=== PATIENT | male | born 1975 | race Caucasian/White ===

== ENCOUNTER 2023-10-12 02:18 | Observation (INO) | payer OTHER, SELFPAY ==
[2023-10-11 22:56] VITALS: BP 175/111
--- NOTE | 2023-10-11 23:56 | ED.GENMED ---
History of Present Illness
<GEOVANNA Sneed - Last Filed: 10/12/23 01:27>
General
Chief Complaint: Abdominal Pain
Source: patient
Exam Limitations: none
Time Seen by Provider: 10/11/23 23:38
Travel History
Have you had any contact with someone who has COVID-19?: No
Do you have any symptoms of coronavirus? Fever > 100 degrees, chills, cough, shortness of breath, sore throat, loss of taste or smell, muscle aches, or headache?: No
History of Present Illness
History of Present Illness:
This is a 48 year old male that comes in with c/o epigastric pain. States that this started on in [place] about 6:30pm. Sates that he just felt off. States that he came home and he felt worse. States that he tried Mylanta and TUMS and nothing helped
and the pain is getting worse. States that the pain is constant. State that he has had this in the past but it would go away. States that he was sweaty, nausea, vomiting and lightheaded. Denies any fever, chills, chest pain, SOB, diarrhea, headache,
urinary burning.
Past History
<GEOVANNA Sneed - Last Filed: 10/12/23 01:27>
Past History
ED Past Medical History: None; Negative Asthma, HTN, Hypercholesterolemia or NIDDM
ED Past Surgical History: None
Social History
Tobacco: Non-smoker
Alcohol: Occasional
Personal:
Living: with family
Review of Systems
<GEOVANNA Sneed - Last Filed: 10/12/23 01:27>
Review of Systems
All Other Systems: ROS reviewed and negative except as documented in HPI and ROS
Constitutional: Reports other (Sweaty); Denies fever or chills
EENT: Reports no symptoms
Respiratory: Reports no symptoms; Denies cough or trouble breathing
Cardiac: Reports no symptoms; Denies chest pain
ABD/GI: Reports abdominal pain, nausea and vomiting; Denies diarrhea
: Reports no symptoms; Denies dysuria, frequency or urgency
Musculoskeletal: Reports no symptoms
Skin: Reports no symptoms
Neurological: Reports other (Lightheaded); Denies dizzy or headache
Psychiatric: Reports no symptoms
Phy Exam
<GEOVANNA Sneed - Last Filed: 10/12/23 01:27>
General Physical Exam
General Presentation: mild distress
General age: appears stated age
General Skin: warm and dry
General Habitus: normal
General Mental: alert
General Hydration: appears well hydrated
ENT Exam
ENT Exam: TM's normal, pharynx normal and neck supple
Eye Exam
Eye Exam: EOMI
Cardiovascular Exam
Cardiovascular Exam: regular rate/rhythm, no edema, no murmur and normal peripheral pulses
Pulmonary Exam
Pulmonary Exam: lungs clear, no respiratory distress, no rales, chest non tender, no crackles, no rhonchi, no wheezing and no cough
Gastrointestinal Exam
Gastrointestinal Exam: soft, no organomegaly, no pulsatile mass, non distended, tender (Epigastric tenderness with palpation) and other (Hypoactive bowel sounds)
Musculoskeletal Exam
Musculoskeletal Exam: full ROM and no edema
Skin Exam
Skin Exam: normal color, warm/dry, no rash and no petechia
Psychiatric Exam
Psychiatric Exam: normal mood/affect
Course
<GEOVANNA Sneed - Last Filed: 10/12/23 01:27>
Orders/Labs/Results
Orders:
Orders
10/11/23 22:57
ECG [Electrocardiogram (*1)] Urgent
Reason for Study: Abdominal Pain
10/11/23 22:58
EKG- Treatment ONCE
10/11/23 23:49
Complete Blood Count/With Diff Urgent
Comprehensive Metabolic Panel Urgent
Lipase Urgent
HYDROmorphone [Dilaudid] 0.5 mg IV NOW STA
Ondansetron Injectable [Zofran] 4 mg IV NOW STA
Pantoprazole [Protonix IV] 40 mg IV NOW STA
US Abdomen Complete/Upper Urgent
Comment:
Reason For Exam: Upper abd pain
10/11/23 23:50
Troponin I Urgent
10/12/23 01:05
Piperacillin/Tazo 3.375 Gram [Zosyn] 3.375 gram in 50 ml IV NOW
10/12/23 01:21
HYDROmorphone [Dilaudid] 1 mg .ROUTE .STK-MED ONE
10/12/23 01:22
HYDROmorphone [Dilaudid] 1 mg IV NOW STA
Abnormal Lab Results
10/12/23
00:06
Abs Immat Gran (auto) 0.1 H 10^3/uL
(0-0.05)
Immature Gran % 0.6 H %
(0-0.5)
Glucose 133 H mg/dl
(70-99)
10/12/23 00:06
10/12/23 00:06
Glucose nonfasting. Otherwise normal labs, Lipase normal at 180, Troponin <0.012
Vital Signs
Initial and Last Documented VS:
Initial Vital Signs
Temp Pulse Resp BP Pulse Ox
98.3 F 70 20 175/111 99
10/11/23 22:56 10/11/23 22:56 10/11/23 22:56 10/11/23 22:56 10/11/23 22:56
Last Documented Vital Signs
Temp Pulse Resp BP Pulse Ox
98.3 F 78 20 143/103 98
10/11/23 22:56 10/12/23 01:27 10/12/23 01:27 10/12/23 01:17 10/12/23 01:18
<Frank Retana, DO - Last Filed: 10/12/23 01:28>
Orders/Labs/Results
Orders:
Orders
10/11/23 22:57
ECG [Electrocardiogram (*1)] Urgent
Reason for Study: Abdominal Pain
10/11/23 22:58
EKG- Treatment ONCE
10/11/23 23:49
Complete Blood Count/With Diff Urgent
Comprehensive Metabolic Panel Urgent
Lipase Urgent
HYDROmorphone [Dilaudid] 0.5 mg IV NOW STA
Ondansetron Injectable [Zofran] 4 mg IV NOW STA
Pantoprazole [Protonix IV] 40 mg IV NOW STA
US Abdomen Complete/Upper Urgent
Comment:
Reason For Exam: Upper abd pain
10/11/23 23:50
Troponin I Urgent
10/12/23 01:05
Piperacillin/Tazo 3.375 Gram [Zosyn] 3.375 gram in 50 ml IV NOW
10/12/23 01:21
HYDROmorphone [Dilaudid] 1 mg .ROUTE .STK-MED ONE
10/12/23 01:22
HYDROmorphone [Dilaudid] 1 mg IV NOW STA
Abnormal Lab Results
10/12/23
00:06
Abs Immat Gran (auto) 0.1 H 10^3/uL
(0-0.05)
Immature Gran % 0.6 H %
(0-0.5)
Glucose 133 H mg/dl
(70-99)
10/12/23 00:06
10/12/23 00:06
Vital Signs
Initial and Last Documented VS:
Initial Vital Signs
Temp Pulse Resp BP Pulse Ox
98.3 F 70 20 175/111 99
10/11/23 22:56 10/11/23 22:56 10/11/23 22:56 10/11/23 22:56 10/11/23 22:56
Last Documented Vital Signs
Temp Pulse Resp BP Pulse Ox
98.3 F 78 20 143/103 98
10/11/23 22:56 10/12/23 01:27 10/12/23 01:27 10/12/23 01:17 10/12/23 01:18
<GEOVANNA Sneed - Last Filed: 10/12/23 01:27>
MDM/Problems Addressed
Differential Diagnosis Includes:
Gastritis, Pancreatitis, Gallbladder disease
MDM/Problems Addressed:
This is a 48 year old male that comes in with c/o epigastric pain. State that he has had this before but it would go away. Today the pain has been constant and it not going away. State that he had nauesa and vomiting and was lightheaded.
Will get labs and US. Will medicate for pain.
Back into see patient. Explained that he has a gallstones stuck in the neck of the gallbladder. Gallbladder is distended. Will admit patient and notify surgery.
Dr. Dorman notified and he will take patient on his Service. Will have the house AUTOMATIC TYPEWRITER INSPECTOR admit for him.
Chronic conditions affecting care:
NA
Acute Exacerbation and/or Progression of Chronic Illness:
NA
<GEOVANNA Sneed - Last Filed: 10/12/23 01:27>
*Radiology
Radiology exam reviewed: radiology read reviewed (US- [place]- 1.3cm gallstone lodged in the neck of mild to moderately distended gallbladder, measuring approximately 9cm in length. No gallbladder wall thickening or pericholecystic fluid.
Negative Cardoso's sign. No biliary ductal dilation. Findings may reflect biliary colic however consider ) and other (US cont- early acute cholecystitis in the appropriate clinical setting. Hyperechoic fatty liver. Kidneys without hydronephrosis. )
*Pulse Oximetry
Patient hypoxic: no
*EKG
Interpreted by ED Provider?: Yes
Heart Rate: 64
Rate: normal
Rhythm: sinus
Cobb: normal axis
Interval: normal interval
QRS Pattern: normal QRS
Ischemia: no ischemia
*Director Of Regional Sales Interpretation
Rate: Director Of Regional Sales- N/A
*Critical Care Note
Total Time (30-74mins, 75-104mins- exclusive of procedures): Not Applicable
ED Attending Note
<GEOVNANA Sneed - Last Filed: 10/12/23 01:27>
-
Portions of this chart may have been created with voice recognition software.� Occasional wrong word or��sound alike� substitutions may have occurred due to the inherent limitations of voice recognition software.
<Frank Retana DO - Last Filed: 10/12/23 01:28>
ED Attending Note
I performed the substantive portion of visit, reviewed & personally made and approve the management plan that is documented in note by myself or QUYEN.: Yes
ED Attending Note:
I have reviewed and agree with history and treatment plan by Yenni Schwarz. Agree patient's persistent right upper quadrant abdominal pain and distended gallbladder early cholecystitis. Zosyn, admit to general surgery.
Discharge Plan
Departure
Patient Disposition: Admit
Date of Disposition: 10/12/23
Time of Disposition: 01:25
Admit to: Med/Surg
Presentation/result/management discussed w/ accepting MD/DO: Dandy Bryant
Patient with high blood pressure during this ER visit?: Yes
Condition: Good
Covid-19: Not Applicable
Discharge Problem:
Acute early Cholecystitis, Abdominal pain
Referrals:
Dara Moreno PA-C [Family Provider] -
Interventions
Interventions:
*Risk Screen - Suicide Last Done: 10/11/23 22:56
*General Assessment Last Done: 10/11/23 22:56
PO-Yldilj-Pqghshsrmv Assessment Last Done: 10/12/23 00:13
[2023-10-11] MEDS: ZOFRAN 4 MG IV (23:58)
[2023-10-11] MEDS: DILAUDID 0.5 MG IV (23:59)
[2023-10-12] VITALS (15 sets, daily range): BP systolic 120–177; BP diastolic 91–118
[2023-10-12] MEDS: PROTONIX IV 40 MG IV (00:02)
[2023-10-12 00:13] LABS: % Basophils 0.5 % (0-2); % Eosinophils 0.1 % (0-6); % Immature Granulocytes 0.6 % (0-0.5); % Lymphocytes 24.6 % (20.5-51.1); % Monocytes 7.4 % (1.7-9.3); % Neutrophils 66.8 % (42.2-75.2); Absolute Immature Granulocytes 0.1 10^3/uL (0-0.05); Absolute Lymphocytes 1.9 10^3/uL (1.2-3.4); Absolute Monocytes 0.6 10^3/uL (0.1-0.6); Absolute Neutrophils 5.2 10^3/uL (1.4-6.5); Hematocrit 41.3 % (39.0-52.0); Hemoglobin 14.4 g/dL (13.0-18.0); Mean Corp Hgb Conc. 34.9 g/dL (33.0-37.0); Mean Corpuscular Hgb 28.1 pg (27.0-31.0); Mean Corpuscular Volume 80.7 fL (80.0-94.0); Mean Platelet Volume 9.4 fL (7.4-10.4); Nucleated Red Blood Cells % 0 % (-); Platelet Count 269 10^3/uL (130-400); Red Blood Cell Count 5.12 10^6/uL (4.70-6.10); White Blood Cell Count 7.8 10^3/uL (4.8-10.8)
[2023-10-12 00:37] LABS: ALT (SGPT) 48 U/L (0-50); AST (SGOT) 33 U/L (17-59); Albumin 4.7 g/dl (3.5-5.0); Alkaline Phosphatase 102 U/L (38-126); Blood Urea Nitrogen 16 mg/dl (9-20); Calcium 9.4 mg/dl (8.4-10.2); Carbon Dioxide 24 mmol/L (22-30); Chloride 102 mmol/L (98-107); Glucose 133 mg/dl (70-99); Potassium 3.6 mmol/L (3.5-5.1); Sodium 139 mmol/L (135-145); Total Bilirubin 0.8 mg/dl (0.2-1.3); Total Protein 7.4 g/dl (6.3-8.2); eGFR > 60.00
[2023-10-12 00:48] LABS: Troponin I < 0.012 ng/ml
[2023-10-12 00:52] LABS: Lipase 180 U/L (23-300)
[2023-10-12] MEDS: ZOSYN 50 IV ×4 (01:12→23:32)
[2023-10-12] MEDS: DILAUDID 1 MG IV (01:22)
--- NOTE | 2023-10-12 01:28 | HPS.HSE ---
Addendum entered and electronically signed by Jim Garcia MD 10/12/23 09:15:
I saw and examined the patient independently.
The Shank Pinner's note was reviewed and I agree with the note, assessment and plan except where noted below.
Comment: This is a 48-year-old male with a history of postprandial 'indigestion' who presents with severe right upper quadrant/epigastric pain yesterday that did not go away and prompted a visit to the ER. Ultrasound demonstrated a 1.3 cm gallstone
lodged in the neck of the gallbladder concerning for acute cholecystitis. LFTs okay. Reported mild tenderness on exam yesterday however minimal tenderness on exam today.
Will plan for a laparoscopic cholecystectomy and cholangiogram.
N.p.o., IV fluids, IV Zosyn.
Risks/Benefits/Alternatives, expected postoperative course and possible complications (bleeding, infection, injury to surrounding structures, acute/chronic pain) discussed at length. Patient wishes to proceed with surgery. All questions answered.
Consent obtained.
I spent roughly 75 minutes in total for the care of this patient today including direct patient care and counseling, reviewing labs, imaging, coordination of care, as well as documentation.
Original Note:
Family Physician
-
Family Physician: Dara Moreno
Chief Complaint
-
Abdominal pain
History of Present Illness
48 year old male that comes in with c/o epigastric pain that started about 6:30pm. He states he had a heavy lunch around 1:30. States that he tried Mylanta and TUMS with no relief and pain got worse. States that the pain is now constant. State that
he has had this in the past but it would go away. Admits to he was sweaty, nausea, vomiting and lightheaded. Denies any fever, chills, chest pain, SOB, diarrhea, headache, urinary burning.
US abdomen - 1.3cm gallstone lodged in neck of gallbladder. Mild to moderate distented gallbladder 9cm in length.
Medical History
Past Medical History
Past Medical History: Reports Psychiatric (ADHD, Depression) and Other
Past Surgical History: Reports None
Social History
Tobacco: Non-smoker
Alcohol: Occasional
Drug: None
Family History
Family History: Not pertinent
Allergies / Home Medications
Allergies reflects when Allergies were last updated in [facility].
Home Medications with original date entered in [facility]
Allergy/Medication List:
Allergies
Allergy/AdvReac Type Severity Reaction Status Date / Time
No Known Allergies Allergy Unverified 10/11/23 22:56
Home Medications
bupropion HCl 100 mg tablet,12 hr sustained-release 200 mg PO DAILY 10/12/23
lisdexamfetamine 30 mg capsule (Vyvanse) 30 mg PO DAILY 10/12/23
Review of Systems
-
History Source: Patient
A 12 point ROS was completed and negative except as noted: Yes
Abdomen/GI: Reports Nausea, Vomiting and Pain
Physical Exam
Vital Signs
Vital Signs
Temp Pulse Resp BP Pulse Ox
98.3 F 78 20 143/103 98
10/11/23 22:56 10/12/23 01:27 10/12/23 01:27 10/12/23 01:17 10/12/23 01:18
Physical Exam
General: Well Developed
HEENT: NormoCephalic
Respiratory: Clear
Cardiac: S1/S2
GI: Tender
Rectal: Deferred by Provider
Genito-urinary: Deferred by me
Musculoskeletal: No Cyanosis
Skin: Warm and Dry
Neuro: Awake, Alert, Oriented and AO x 3
Psych: Calm
Laboratory Results
-
10/12/23 00:06
10/12/23 00:06
Laboratory Results
Total Bilirubin 0.8 mg/dl (0.2-1.3) 10/12/23 00:06
AST 33 U/L (17-59) 10/12/23 00:06
ALT 48 U/L (0-50) 10/12/23 00:06
Alkaline Phosphatase 102 U/L (38-126) 10/12/23 00:06
Troponin I < 0.012 ng/ml 10/12/23 00:06
Lipase 180 U/L (23-300) 10/12/23 00:06
Data Reviewed
-
Ultrasound: Report Reviewed by me
Lab Data: Labs Reviewed by me
Impression/Plan
-
IMPRESSION: Cholecystitis
PLAN:
Admit to service of Dr. Jim Dorman
Admit to m/s
#Cholecystitis
- NPO
- Zosyn q6hr
- Pain control - Dilaudid, Toradol, Tylenol.
- Nausea - Zofran
- Labs CBC CMP in AM
#Depression
- continue bupropion 200mg po qd
#ADHD
- On Vyvanse 30mg po qd
DVT prophylaxis - SCD
[2023-10-12] MEDS: NSS 1000 IV ×3 (03:11→23:36)
[2023-10-12] MEDS: ZOFRAN 4 MG IV (03:11)
--- NOTE | 2023-10-12 03:19 | PTCARENOTE ---
Pt. admitted to [facility] from ED and able to walk to room bed with stable gait. Nauseous and vomiting bile upon arrival, PRN Zofran IV given per orders- see MAR. Otherwise pt. is A&Ox3, in NAD, even and unlabored breathing on RA, BP elevated at 136/93
but otherwise VSS. Pt. oriented to room and unit policies, questions/concerns addressed, bed locked and in lowest position, side rails in place, and call light within reach. Will continue to monitor.
[2023-10-12 07:13] LABS: % Basophils 0.4 % (0-2); % Eosinophils 0.1 % (0-6); % Immature Granulocytes 0.6 % (0-0.5); % Lymphocytes 14.8 % (20.5-51.1); % Monocytes 6.7 % (1.7-9.3); % Neutrophils 77.4 % (42.2-75.2); Absolute Immature Granulocytes 0.1 10^3/uL (0-0.05); Absolute Lymphocytes 1.6 10^3/uL (1.2-3.4); Absolute Monocytes 0.7 10^3/uL (0.1-0.6); Absolute Neutrophils 8.3 10^3/uL (1.4-6.5); Hematocrit 44.5 % (39.0-52.0); Hemoglobin 14.9 g/dL (13.0-18.0); Mean Corp Hgb Conc. 33.5 g/dL (33.0-37.0); Mean Corpuscular Hgb 28.4 pg (27.0-31.0); Mean Corpuscular Volume 84.9 fL (80.0-94.0); Mean Platelet Volume 9.4 fL (7.4-10.4); Nucleated Red Blood Cells % 0 % (-); Platelet Count 281 10^3/uL (130-400); Red Blood Cell Count 5.24 10^6/uL (4.70-6.10); Red Cell Dist. Width 13.2 % (11.5-14.5); White Blood Cell Count 10.7 10^3/uL (4.8-10.8)
[2023-10-12 08:00] LABS: ALT (SGPT) 62 U/L (0-50); AST (SGOT) 56 U/L (17-59); Albumin 4.5 g/dl (3.5-5.0); Alkaline Phosphatase 95 U/L (38-126); Blood Urea Nitrogen 14 mg/dl (9-20); Calcium 9.2 mg/dl (8.4-10.2); Carbon Dioxide 28 mmol/L (22-30); Chloride 100 mmol/L (98-107); Estimated Creatinine Clearance 115 ml/min; Glucose 121 mg/dl (70-99); Potassium 4.5 mmol/L (3.5-5.1); Sodium 139 mmol/L (135-145); Total Bilirubin 1.4 mg/dl (0.2-1.3); Total Protein 7.1 g/dl (6.3-8.2); eGFR > 60.00
[2023-10-12] MEDS: TRANSDERM-SCOP 1 PATCH TRANSDERM (10:51)
--- NOTE | 2023-10-12 13:01 | W.SUR.PREOP ---
Pre-Operative Surgical Note
-
I have examined this patient prior to the performance of the scheduled procedure.
The patient's condition is unchanged from the time of the current History and
Physical and the patient is able to undergo the scheduled procedure.
--- NOTE | 2023-10-12 13:03 | W.IMMPOSTOP ---
Surgical Immed Post Op Note
-
Primary Surgeon: Jim Garcia MD
Assisting Surgeon: None
Pre-op Diagnosis: Acute cholecystitis
Post-op Diagnosis: Same
Procedure Performed: Laparoscopic cholecystectomy
Anesthesia Type: General
Specimen / Cultures: Gallbladder and contents
Estimated Blood Loss: 3 cc
Complications: None
Operative Findings: Early acute cholecystitis. Cystic artery identified high on the gallbladder and ligated early, critical view of safety obtained. Cystic duct ligated with a 0 PDS Endoloop
POST OP PLAN:
Imaging: None
Labs: Routine AM
Diet: Advance to Regular as tolerated
Analgesia: Tylenol 650mg q6 Jeanette, Justina 5mg q6 PRN, Dilaudid 0.5mg q2h PRN
Neuro/vascular checks: q4h
AC/AP: Hold Therapeutic AC, Ok for DVT PPx
Activity: Ad [facility]
Wound/Incisions/Drains: Routine
Abx: Continue Zosyn x 1 dose
Dispo: RNF, anticipate discharge later tonight versus tomorrow.
--- NOTE | 2023-10-12 13:06 | OR.RPT ---
Operative Report
Operative Report
Patient Name: Kamlesh Ford
Date of : 1975
Date of Operation: 10/12/2023
Preoperative Diagnosis: Acute cholecystitis
Postoperative Diagnosis: Same
Procedure(s):
Laparoscopic Cholecystectomy with Cholangiogram
Surgeon(s):
Dr. Garcia
Pelletising Extruder Operator(s):
None
Anesthesia: General
Estimated Blood Loss: 3 cc
Urine Output: None
Drains/Lines/Implants: None
Specimens:
1. Gallbladder and contents
HPI/Surgical Indications:
This is a 48-year-old male who presents with a 1 day history of postprandial right upper quadrant abdominal pain. Exam, labs and imaging are consistent with early acute cholecystitis. Risks/Benefits/Alternatives were discussed at length, and the
patient agreed to proceed with surgery.
Findings:
The patient was noted to have mild gallbladder inflammation with significant edema in the gallbladder wall and cystic triangle. The cystic artery was identified and ligated early high on the gallbladder wall, the gallbladder was dissected off of
the cystic plate and a Critical View of Safety was obtained. The cystic duct was ligated with a 0 PDS Endoloop.
Procedure Description:
The patient was brought to the Operating Room and placed in the supine position with one arm tucked. Following uneventful induction of general endotracheal anesthesia, an orogastric tube was placed. The abdomen was prepped and draped in the usual
sterile fashion. A timeout was performed confirming the procedure, consent, and that IV antibiotics were infused and sequential compression devices were confirmed to be on. The abdomen was entered using an infraumbilical open Annie technique with a
12 mm trochar. Pneumoperitoneum to 15 mmHg pressure was obtained without difficulty and we confirmed that no injury had occurred during our entry. The patient was positioned in reverse Trendelenberg and rotated with the right side up slightly. Three
(3) 5mm trocars were then placed along the right subcostal margin. A locking grasping forceps was placed on the fundus of the gallbladder where it was then retracted cephalad and to the right. Using appropriate grasping instruments, the peritoneum
overlying the triangle of Calot was incised and extended superiorly on both the anterior and posterior gallbladder aragon. The infundibulum was dissected off the cystic plate. The cystic triangle was dissected until a critical view of safety was
achieved. The cystic artery was medialized, dissected and controlled with 2 proximal clips and 1 distal, and divided. The cystic duct/gallbladder junction in turn was identified, dissected circumferentially and a clip was placed. A ductotomy in the
common bile duct was milked in a retrograde fashion with free flow of bile through our ductotomy. There is no distal stones that we could easily palpate so no cholangiogram was performed. The proximal end of the duct was controlled with a clip and
the duct was divided. The duct was then doubly ligated with a 0 PDS Endoloop.
After ensuring both the artery and duct were divided, the gallbladder was freed from the liver using electrocautery. There was no spillage of bile or stones. The gallbladder bed was inspected and excellent hemostasis was obtained. The gallbladder
was extracted through the 12 mm trocar site using an endocatch bag. The abdomen was again irrigated and excellent hemostasis was assured. All remaining trocars were then removed and the pneumoperitoneum was evacuated. The 12 mm trocar site was
closed using 0 PDS suture. All trocar sites were closed at the skin level using 4-0 Monocryl followed by Dermabond. Overall, the patient tolerated the procedure well and was taken to the Recovery Room postoperatively in stable condition.
I was the attending physician and performed the procedure with no assistance. I was present for all portions of the case
Jim Garcia MD
[2023-10-12] MEDS: ZOSYN IV (13:32)
--- NOTE | 2023-10-12 14:34 | PTCARENOTE ---
Pt arrived to [facility] from PACU s/p capo zaragoza. Pt incisions C/D/I, IVF infusing. Pt states pain 4/10 and does not want any pain medication. Pt re-oriented to call van and room, bed locked and in lowest position, call van within reach.
--- NOTE | 2023-10-12 14:37 | CM ---
CM attempted to meet with pt but off unit for procedure
Will reattempt for initial assessment at later time
[2023-10-12] MEDS: ROXICODONE 5 MG PO (15:26)
[2023-10-13 03:00] VITALS: BP 129/89
[2023-10-13] MEDS: ZOSYN 50 IV (06:25)
[2023-10-13] MEDS: ROXICODONE 5 MG PO (06:30)
[2023-10-13 07:00] VITALS: BP 130/86
--- NOTE | 2023-10-13 09:02 | W.PN.GS2 ---
Today's Communication / Plan
-
Dispo planning
Assessment / Plan
-
This is a 48-year-old male postoperative day 1 from a laparoscopic cholecystectomy for acute calculus cholecystitis. Doing well, expected postoperative course.
Anticipate discharge home today.
Time Spent
Total Time Spent with Patient (in minutes): 15
Subjective Data
-
Date of Service: October 13, 2023
Interval Events:
No acute events overnight. Slept well. Pain Controlled. Denies Nausea/Vomiting, +bowel function. Tolerating diet.
Objective Data
-
Intake and Output
10/12/23 10/13/23 10/14/23
06:59 06:59 06:59
Intake Total 450 / 450 1680 / 1680 1150 / 1150
Output Total 200 / 200 280 / 280
Balance 250 / 250 1400 / 1400 1150 / 1150
Intake:
Oral fluids 880 / 880
IV fluids (Total) 400 / 400 700 / 700 1100 / 1100
normosol 100 / 100
IV piggybacks 50 / 50 100 / 100 50 / 50
Output:
Emesis 200 / 200
Urine, Voided 280 / 280
Other:
Number of approximated MODERATE 1 3
amounts of urine
Number of approximated LARGE 1
amounts of urine
Number of immeasurable emeses? 2
Vital Signs
Temp Pulse Resp BP Pulse Ox
97.9 F 84 16 130/86 98
10/13/23 07:00 10/13/23 07:00 10/13/23 07:00 10/13/23 07:00 10/13/23 08:00
Lab Results
10/12/23 07:01
10/12/23 07:01
Calcium 9.2 mg/dl (8.4-10.2) 10/12/23 07:01
Total Bilirubin 1.4 mg/dl (0.2-1.3) H 10/12/23 07:
AST 56 U/L (17-59) 10/12/23 07:
ALT 62 U/L (0-50) H 10/12/23 07:
Alkaline Phosphatase 95 U/L (38-126) 10/12/23 07:
Total Protein 7.1 g/dl (6.3-8.2) 10/12/23 07:
Albumin 4.5 g/dl (3.5-5.0) 10/12/23 07:01
Physical Exam
-
GENERAL/NEURO: Awake, Alert, no distress
CHEST: Unlabored breathing on RA
ABDOMEN: Soft, Non-Tender, Non-Distended, incisions clean dry and intact.
--- NOTE | 2023-10-13 09:12 | W.DCSUMMARY ---
Discharge Summary
Discharge Data
Date of Admission: 10/12/23
Date of Discharge: 10/13/23
-
Pending Results: No
Hospital Course
Mr Ford is a 48 yo male who presented through the ED with postprandial indigestion and persistent RUQ/epigastric pain. Cholelithiasis noted on abdominal ultrasound imaging. He was taken to the OR for laparoscopic cholecystectomy with early
cholecystitis noted intraoperatively. He tolerated the procedure well. Diet was able to be advanced and well tolerated. Pain well managed post operatively. He was discharged to home with outpatient follow up planned in the coming weeks.
Discharge Plan
-
Patient Disposition: Home (Routine Discharge)
Discharge Diagnosis/Procedures: Acute cholecystitis status post laparoscopic cholecystectomy
Condition: Good
Activity: No strenuous activity
Bathing Restrictions: OK to Shower
Activity Restrictions/Additional Instructions:
Instructions following Laparoscopic cholecystectomy
Please call [phone] if you have any questions or concerns after your surgery.
Wound Care:
Your incisions are covered with skin glue which will come off on it�s own in 5-10 days.
It is ok to shower the day after your surgery. Do not scrub the incisions, let soap and water wash over them and pat dry.
� Bruising around your incisions is normal.
� Using ice packs will help minimize this swelling.
� No swimming or soaking incisions for 1 week.
� Your stitches will dissolve and do not need to be removed.
Urinary retention:
If you are unable to urinate 6-8 hours after your surgery, please call [phone] to discuss further management.
Activity:
No heavy lifting more than 15 pounds for the next 3 weeks, then you may gradually lift heavier objects as tolerated by discomfort. Otherwise activity as tolerated by your comfort level.
Pain Management:
Use Tylenol, ibuprofen and ice packs to treat your pain.
� You may take 650 milligrams of Tylenol (Max 3 grams per day) every 6 hours, and 600 mg of ibuprofen also every 6 hours. (you can alternate them every 3 hours)
� You may use an ice pack to your incision as needed.
� If you still have pain not controlled by these measures, take your prescription pain medication as prescribed.
Medications:
You may resume your home medications.
Bowel Medications:
Prescription pain medication can make you constipated. If you take this medication, also take colace 100 mg twice daily (this is over the counter). If this is not sufficient, you may take Miralax (polyethylene glycol) to help move your bowels.
Diet:
After your procedure, there are no dietary restrictions. You may notice loose stools for up to 4 weeks after surgery with fatty meals, if this is the case you may have to adjust your diet as needed.
Driving restrictions:
No driving if you are taking prescription pain medication or if you think your normal reaction time and attentiveness has been slowed by your surgery.
Things to Look out for:
Worsening Abdominal pain, redness or drainage from incision
Call Doctor for:
Please call if you notice worsening redness or drainage from incision(s) lasting longer than 5 days after your surgery, any foul-smelling drainage from the incision, pain not controlled by pain medications, persistent nausea and vomiting, or for any
fevers greater than 101.3 F. The number for questions/concerns is [phone]
Follow-up:
Follow-up appointment will be scheduled with your surgeon in 3-4 weeks. Please call prior to your appointment if you have any questions or concerns. [phone]
Referrals:
Dara Moreno PA-C [Family Provider] -
Jim Garcia MD [Active] - in two to four weeks
Prescriptions:
New
acetaminophen [acetaminophen] 325 mg tablet
650 mg PO Q6HPRN PRN (Reason: mild pain) Qty: 14 0RF
tramadol 50 mg tablet
25 mg PO Q6HPRN PRN (Reason: severe pain/breakthrough pain) Qty: 8 0RF
ibuprofen 600 mg tablet
600 mg PO Q6H PRN (Reason: pain) Qty: 14 0RF
Continued
bupropion HCl 100 mg Tablet Sustained-Release 12 Hr
200 mg PO DAILY
lisdexamfetamine [Vyvanse] 30 mg Capsule
30 mg PO DAILY
Discharge Orders:
Discharge Patient (As Directed); Ordered 10/13/23
Ordered By: Jim Garcia
--- NOTE | 2023-10-13 10:12 | CM ---
Reviewed the chart notes and spoke with the patient and his spouse at the bedside. The patient resides with his spouse in a two story home with one step to enter. The patient reports no DME/VN/SNF in the past. Patient confirmed his pharmacy of
choice is the [facility]. The patient is being discharged to home today. Patient's spouse will provide transportation. CM continues to be available to patient/family and is monitoring medical plan for needs at discharge.
Plan: Discharge to home today with no anticipated needs being identified at this time.
== END 2023-10-13 10:10 | disposition home or self-care (01) ==
LOC: 2 SOUTH 02:18
PROVIDERS: Clinical Nurse Specialist Family Health; Nurse Practitioner Gerontology; ADMITTING PHYSICIAN Surgery; EMERGENCY PHYSICIAN Emergency Medicine; FAMILY PHYSICIAN Physician Assistant Medical
DX: K80.12 Calculus of gallbladder with acute and chronic cholecystitis without obstruction (principal); F90.9 Attention-deficit hyperactivity disorder, unspecified type; F32.A Depression, unspecified; Z79.899 Other long term (current) drug therapy
CPT/HCPCS: 47563; 88304; 76700; 80053; 83690; 84484; 85025; 93005; 96365; 96375; 96376; 99285; G0378

== ENCOUNTER 2024-10-05 06:18 | Day surgery (SDC) | payer OTHER, SELFPAY | END 2024-10-05 13:12 | disposition home or self-care (01) | LOC: GI 06:18 | PROVIDERS: ATTENDING PHYSICIAN Internal Medicine | DX: Z12.11 Encounter for screening for malignant neoplasm of colon (principal); K57.30 Diverticulosis of large intestine without perforation or abscess without bleeding | CPT/HCPCS: G0121 ==